=== PATIENT | male | born 1995 | race Caucasian/White ===

== ENCOUNTER 2020-06-17 15:58 | Outpatient (CLI) | payer OTHER | END 2020-06-17 15:59 | disposition home or self-care (01) | LOC: CTENTCT 15:58 | PROVIDERS: ATTEND Otolaryngology Plastic Surgery within the Head & Neck | DX: J32.9 Chronic sinusitis, unspecified (principal) | CPT/HCPCS: 70486 ==

== ENCOUNTER 2020-07-02 06:52 | Outpatient (CLI) | payer OTHER ==
[2020-07-03 11:59] LABS: SARS-CoV-2 MS2 Positive; SARS-CoV-2 N Gene Negative; SARS-CoV-2 S Gene Negative; SARS-CoV-2 by NAA Not Detected (NotDetected); SARS-CoV-2 orf1ab Negative
== END 2020-07-02 06:53 | disposition home or self-care (01) ==
LOC: LABBT 06:52
PROVIDERS: ATTEND Otolaryngology Plastic Surgery within the Head & Neck
DX: J32.0 Chronic maxillary sinusitis (principal); J32.2 Chronic ethmoidal sinusitis; J32.1 Chronic frontal sinusitis; J32.3 Chronic sphenoidal sinusitis; J33.9 Nasal polyp, unspecified; J34.3 Hypertrophy of nasal turbinates; J34.2 Deviated nasal septum; J34.89 Other specified disorders of nose and nasal sinuses; Z20.828 Contact with and (suspected) exposure to other viral communicable diseases
CPT/HCPCS: 87635; U0003

== ENCOUNTER 2020-07-07 06:12 | Day surgery (SDC) | payer OTHER ==
[2020-07-06 13:24] VITALS: BMI 25.1
[2020-07-07] MEDS ORDERED: AFRIN NASAL MIST 15 ML BOT ONE ×2 (06:59→08:04)
[2020-07-07] MEDS ORDERED: Bacitracin Zinc Ointment 30 gm TUBE ONE (08:04)
[2020-07-07] MEDS ORDERED: Lidocaine 1% w/Epinephrine 1:100K 20 ML VIAL ONE (08:04)
[2020-07-07] MEDS ORDERED: EPINEPHrine 1 MG/ML AMP ONE (08:04)
[2020-07-07] MEDS ORDERED: Fentanyl 100 MCG/2 ML VIAL ONE ×2 (08:07→10:14)
[2020-07-07] MEDS ORDERED: Midazolam HCl 2 mg/2 ml Vial ONE (08:07)
[2020-07-07] MEDS ORDERED: methylPREDNISolone Sod Succ 40 MG VIAL ONE (08:07)
[2020-07-07] MEDS ORDERED: methylPREDNISolone Acetate 40 mg/ml Vial ONE (08:08)
[2020-07-07] MEDS ORDERED: Succinylcholine Chloride 20 MG/ML 10 ml SYRINGE FS ONE (10:53)
[2020-07-07] MEDS ORDERED: Rocuronium Bromide 10 MG/ML (10ML VIAL) ONE (10:53)
[2020-07-07] MEDS ORDERED: Lidocaine 1% PF 5 ML VIAL ONE (10:53)
[2020-07-07] MEDS ORDERED: PROPOFOL 200 MG/20 ML VIAL ONE (10:53)
[2020-07-07] MEDS ORDERED: Ondansetron PF 4 MG/2 ML Vial ONE (10:53)
[2020-07-07] MEDS ORDERED: Dexamethasone 20 MG/5 ML VIAL ONE (10:53)
[2020-07-07] MEDS ORDERED: Morphine 2 MG/ML VIAL ONE (11:12)
[2020-07-07] MEDS ORDERED: Hydrocodone-Acetamin 15 ML UDCUP ONE (11:13)
[2020-07-07] MEDS ORDERED: HYDROcodone/Acetaminophen 5/325 mg Tablet ONE (11:18)
--- NOTE | 2020-07-07 14:40 | OP ---
DATE OF PROCEDURE: 07/07/2020 PREOPERATIVE DIAGNOSES: 1. Chronic rhinosinusitis. 2. Nasal polyposis. 3. Nasal septal deviation. 4. Bilateral inferior turbinate hypertrophy. 5. Nasal obstruction. POSTOPERATIVE DIAGNOSES: 1. Chronic rhinosinusitis. 2. Nasal polyposis. 3. Nasal septal deviation. 4. Bilateral inferior turbinate hypertrophy. 5. Nasal obstruction. PROCEDURES PERFORMED: 1. Bilateral endoscopic sinus surgery, total ethmoidectomy. 2. Bilateral endoscopic sinus surgery, maxillary antrostomies with removal of tissue. 3. Bilateral endoscopic sinus surgery, frontal sinus exploration. 4. Bilateral endoscopic sinus surgery, sphenoidotomies. 5. Nasal septoplasty. 6. Bilateral inferior turbinate submucosal resection. 7. [employer] image-guided system cranial base navigational surgery. ESTIMATED BLOOD LOSS: 50 mL. COMPLICATIONS: None. ANESTHESIA: GETA. DESCRIPTION OF PROCEDURE: NASAL SEPTOPLASTY AND BILATERAL INFERIOR TURBINATE SUBMUCOSAL RESECTION: Patient was taken to the operating room and placed supine on the table. General endotracheal anesthesia was obtained by the anesthesia staff. Then 1% lidocaine with 1:100,000 epinephrine was injected into the nasal septum as well as the inferior turbinates. The patient was prepped and draped in standard surgical fashion. The Afrin pledgets were then removed. A [place] incision was made on the left nasal septum. Submucoperichondrial dissection was performed bilaterally of the deviated portions of the septum, which included the maxillary crest and the crest deviation, as well as the mid portion of the septum. Cartilage and bony deviation was removed, leaving a generous caudal and dorsal strut. Any straight pieces of cartilage were then placed within the cartilage press, pressed, straightened, and then placed between the mucoperichondrial flaps, which were then closed using a 4-0 gut stitch. The inferior turbinates were then punctured with the submucosal Coblation machine, and 3 separate coblations were delivered to the anterior inferior portion of the inferior turbinates. Following this, the nasal cavity was irrigated. All debris was removed. An orogastric tube was placed. Gastric contents and Michelle splints were then placed in the nasal cavity and sutured with a 3-0 silk stitch. Following this, the [employer] image guided system was then set up and calibrated. It was noted to be within 1 mm of accuracy. All instruments used from here were under navigational surveillance. Following this, the middle turbinates were identified using a 0-degree endoscope and the middle turbinates were gently medialized with a Gary elevator bilaterally. The uncinate process was visualized and was anteriorly fractured using a ball-ended probe bilaterally. The uncinate process was then removed using the microdebrider and up-biting [place]akes[place] forceps. The maxillary sinus ostia were then visualized and was widened using the 0-degree microdebrider and straight [place] forceps bilaterally. Nasal polyps removed from the maxillary sinus ostia and ethmoidal area using straight Blakesley forceps and a microdebrider. Following this, ethmoidal bulla was identified and was punctured on its medial and inferior aspect with microdebrider. Following this, the ethmoidal bulla and anterior ethmoidal cells were opened using microdebrider and up-biting Blakesley forceps under image-guided surveillance. Following this, the grand lamella was identified and was punctured in the posterior ethmoidal cells working from posterior to anterior, the ethmoidal cells were opened in a mucosal sparing technique. Following this, the anterior wall sphenoid sinus was identified through the previous ethmoidectomies and using the image guided instruments, the anterior wall sphenoid sinus was punctured with the Francis tip suction into the sphenoid sinus. Following this, the sphenoidotomies were created in a medial and inferior direction and the sphenoid sinus was irrigated bilaterally. Following this, 45-degree endoscope along with the 40-degree microdebrider blade was then used under image-guided surveillance to open the frontal recess and frontal sinus ostia cells bilaterally. Following this, nasal cavity was irrigated. Nasal pore packing was placed within the middle meatus. Michelle splints were placed and secured. The patient tolerated the procedure well. Job ID: [id number]
== END 2020-07-07 12:30 | disposition home or self-care (01) ==
LOC: SDC 06:12
PROVIDERS: ATTEND Otolaryngology Plastic Surgery within the Head & Neck
PROC: 09BV8ZZ Excision of Left Ethmoid Sinus, Via Natural or Artificial Opening Endoscopic (ICD-10-PCS; principal; 2020-07-07)
PROC: 09BL8ZZ Excision of Nasal Turbinate, Via Natural or Artificial Opening Endoscopic (ICD-10-PCS; principal; 2020-07-07)
PROC: 09BU8ZZ Excision of Right Ethmoid Sinus, Via Natural or Artificial Opening Endoscopic (ICD-10-PCS; principal; 2020-07-07)
PROC: 09BS8ZZ Excision of Right Frontal Sinus, Via Natural or Artificial Opening Endoscopic (ICD-10-PCS; principal; 2020-07-07)
PROC: 09BM8ZZ Excision of Nasal Septum, Via Natural or Artificial Opening Endoscopic (ICD-10-PCS; principal; 2020-07-07)
PROC: 8E09XBZ Computer Assisted Procedure of Head and Neck Region (ICD-10-PCS; principal; 2020-07-07)
PROC: 099R8ZZ Drainage of Left Maxillary Sinus, Via Natural or Artificial Opening Endoscopic (ICD-10-PCS; principal; 2020-07-07)
PROC: 09CW8ZZ Extirpation of Matter from Right Sphenoid Sinus, Via Natural or Artificial Opening Endoscopic (ICD-10-PCS; principal; 2020-07-07)
PROC: 09CX8ZZ Extirpation of Matter from Left Sphenoid Sinus, Via Natural or Artificial Opening Endoscopic (ICD-10-PCS; principal; 2020-07-07)
PROC: 099Q8ZZ Drainage of Right Maxillary Sinus, Via Natural or Artificial Opening Endoscopic (ICD-10-PCS; principal; 2020-07-07)
PROC: 09BT8ZZ Excision of Left Frontal Sinus, Via Natural or Artificial Opening Endoscopic (ICD-10-PCS; principal; 2020-07-07)
DX: J32.9 Chronic sinusitis, unspecified (principal); J33.9 Nasal polyp, unspecified; J34.2 Deviated nasal septum; J34.3 Hypertrophy of nasal turbinates; J34.89 Other specified disorders of nose and nasal sinuses; Z79.899 Other long term (current) drug therapy; Z91.018 Allergy to other foods
CPT/HCPCS: J0171; J1100; J2250; J2270; J2405; J2704; J2920; J3010